=== PATIENT | male | born 1955 | race Caucasian/White ===

== ENCOUNTER → 2022-06-16 11:27 | Outpatient (CLI) | payer OTHER, SELFPAY ==
--- NOTE | 2022-06-16 | DI.CT.S_ITS ---
PROCEDURE: CT CERVICAL SPINE WO CON INDICATIONS: S/P CERVICAL SPINE FUSION TECHNIQUE: Noncontrast 3 mm thick sections acquired from the skull base to the T4 level. Sagittal and coronal reformats were then constructed. For radiation dose reduction, the following was used: automated exposure control, adjustment of mA and/or kV according to patient size. COMPARISON: None. FINDINGS: Image quality: Excellent. Bones: No fractures or dislocations. Visualized superior ribs are intact. Spinal fusion hardware can be seen anteriorly at the C5-C6 level. A disc spacer is seen. No findings of hardware failure or hardware loosening are seen. There is mild reversal of the normal cervical lordosis, with the apex at the C3-C4 level. Minimal anterolisthesis is seen at C3-C4. There is mild disc space narrowing at C2-C3, C3-C4, and C5-6 C7. Moderate disc space narrowing is seen at C4-C5. Mild endplate irregularity and sclerosis can be seen at C4-C5. Soft tissues: Prevertebral soft tissues are normal in thickness. No paravertebral hematomas. No apical pneumothoraces. IMPRESSION: Normal appearing C5-C6 postoperative hardware. Degenerative changes are seen, which are worst at C4-C5. Dictated by: Diego Diego M.D. on 06/16/2022 at 14:18 Approved by: Diego Diego M.D. on 06/16/2022 at 14:19
== END ==
PROVIDERS: Family Provider Nurse Practitioner Family; PCP Nurse Practitioner Family; Referring Provider Nurse Practitioner; Visit Provider Nurse Practitioner
DX: M47.812 Spondylosis without myelopathy or radiculopathy, cervical region (principal); Z98.1 Arthrodesis status
CPT/HCPCS: 72125